=== PATIENT | male | born 2000 | race Two or more races ===

== ENCOUNTER 2024-09-23 13:42 | Emergency (ER) | payer OTHER ==
[~2024-09-23] VITALS: Ht 170.2 cm; Wt 59.0 kg
[2024-09-23 13:46] VITALS: BP 135/70; TEMP 96.9; O2SAT 100
[2024-09-23] MEDS ORDERED: OXYM15SP2 (15:52)
== END 2024-09-23 15:56 | disposition home or self-care (01) ==
LOC: M ED 13:42
DX: S00.33XA Contusion of nose, initial encounter (principal); W01.0XXA Fall on same level from slipping, tripping and stumbling without subsequent striking against object, initial encounter; Y92.9 Unspecified place or not applicable; Y93.02 Activity, running; Y99.1 Military activity; Z79.899 Other long term (current) drug therapy

== ENCOUNTER 2025-08-10 09:10 | Inpatient (IN) | payer OTHER ==
[~2025-08-10] VITALS: Ht 170.2 cm; Wt 54.4 kg
[2025-08-10] MEDS: NICOTINE 14 MG/24 HR TRANSDERMAL TD SCH (09:00)
[~2025-08-10 09:10] MED LIST: OXYM15SP2
[2025-08-10 10:19] LABS: PLATELET COUNT, AUTOMATED 209 10^3/uL (150-450)
[2025-08-10 10:36] LABS: ETHYL ALCOHOL (ETHANOL) 0.004 % (0.000-0.010)
[2025-08-10 10:38] LABS: ALT/SGPT 10 U/L (7.0-40); AST/SGOT 17 U/L (<34); CALCIUM LEVEL 8.8 MG/DL (8.5-10.1); CARBON DIOXIDE LEVEL 29 MMOL/L (20-31); CHLORIDE LEVEL 104 MMOL/L (98-107); CREATININE FOR GFR 0.79 MG/DL (0.70-1.30); GLOMERULAR FILTRATION RATE > 90.0 (>60); POTASSIUM SERUM 4.1 MMOL/L (3.5-5.1); SALICYLATE LEVEL < 3.0 MG/DL (<30); SODIUM LEVEL 142 MMOL/L (136-145)
[2025-08-10] MEDS ORDERED: HOME MED LIST COMPLETE! XX SCH (10:50)
[2025-08-10 12:53] LABS: AMPHETAMINES LEVEL URINE NEGATIVE (NEGATIVE); BARBITURATES URINE NEGATIVE (NEGATIVE); BENZODIAZEPINES URINE NEGATIVE (NEGATIVE); CANNABINOIDS URINE NEGATIVE (NEGATIVE); COCAINE METABOLITE URINE NEGATIVE (NEGATIVE); METHADONE URINE NEGATIVE (NEGATIVE); OPIATES URINE NEGATIVE (NEGATIVE); PHENCYCLIDINE URINE NEGATIVE (NEGATIVE)
[2025-08-10] MEDS ORDERED: traZODone 50 MG TAB PO PRN (13:05)
[2025-08-10] MEDS ORDERED: LORazepam 1 MG TAB PO PRN (13:05)
[2025-08-10] MEDS ORDERED: HALOPERIDOL 5 MG TAB PO PRN (13:05)
[2025-08-10] MEDS ORDERED: OLANZapine 5 MG TAB PO PRN (13:05)
[2025-08-10] MEDS ORDERED: MOM 30 ML SUSPENSION UDC PO PRN (13:05)
[2025-08-10] MEDS ORDERED: ACETAMINOPHEN 325 MG TAB PO PRN (13:05)
[2025-08-10] MEDS ORDERED: IBUPROFEN 400 MG TAB PO PRN (13:05)
[2025-08-10] MEDS ORDERED: MAALOX 30 ML SUSP *UDC PO PRN (13:05)
[2025-08-10 17:00] VITALS: BP 125/67; TEMP 97.9; O2SAT 99
[2025-08-11 06:25] VITALS: BP 123/64; TEMP 97.2; O2SAT 99
[2025-08-11 15:09] VITALS: BP 111/68; TEMP 97.9; O2SAT 100
[2025-08-12 06:30] VITALS: BP 114/65; TEMP 97.3; O2SAT 100
[2025-08-12 17:24] VITALS: BP 110/60; TEMP 99.5; O2SAT 100
[2025-08-12] MEDS: SERTRALINE HCL 50 MG TAB PO SCH (20:17)
[2025-08-13 06:13] VITALS: BP 121/70; TEMP 98.2; O2SAT 99
[2025-08-13 14:35] VITALS: BP 123/59; TEMP 97.8; O2SAT 97
[2025-08-13 20:12] VITALS: BP 123/59; TEMP 97.8; O2SAT 97
[2025-08-14 06:43] VITALS: BP 110/71; TEMP 97.7; O2SAT 98
[2025-08-14 16:06] VITALS: BP 119/73; TEMP 97.3; O2SAT 100
[2025-08-14 20:29] VITALS: BP 119/73; TEMP 97.3; O2SAT 100
[2025-08-15 06:29] VITALS: BP_SYST 111; BP_SYST 135; BP_DIAS 64; BP_DIAS 65; TEMP 97.8; O2SAT 100
[2025-08-15 15:23] VITALS: BP 114/69; TEMP 97.8; O2SAT 98
[2025-08-15 20:34] VITALS: BP 114/69; TEMP 97.8; O2SAT 98
[2025-08-16 06:32] VITALS: BP 111/59; TEMP 98.5; O2SAT 97
[2025-08-16 15:23] VITALS: BP 137/68; TEMP 97.9; O2SAT 99
[2025-08-16 15:24] VITALS: BP_SYST 137; BP_SYST 154; BP_DIAS 68; BP_DIAS 94; TEMP 98.6; O2SAT 99
[2025-08-17 06:20] VITALS: BP 139/67; TEMP 97.7; O2SAT 98
[2025-08-17 18:12] VITALS: BP 112/74; TEMP 97.2
[2025-08-17] MEDS: SERTRALINE HCL 25 MG TABLET PO SCH (20:53)
[2025-08-18 06:23] VITALS: BP 119/60; TEMP 97.9; O2SAT 100
[2025-08-18 15:14] VITALS: BP 115/61; TEMP 97.3; O2SAT 98
[2025-08-18] MEDS: MIRTAZAPINE 15 MG TAB PO SCH (20:04)
[2025-08-19 06:14] VITALS: BP 130/57; TEMP 97.8; O2SAT 97
[2025-08-19 09:57] LABS: ALT/SGPT 13 U/L (7.0-40); AST/SGOT 16 U/L (<34); CALCIUM LEVEL 9.6 MG/DL (8.5-10.1); CARBON DIOXIDE LEVEL 32 MMOL/L (20-31); CHLORIDE LEVEL 103 MMOL/L (98-107); CREATININE FOR GFR 0.90 MG/DL (0.70-1.30); GLOMERULAR FILTRATION RATE > 90.0 (>60); POTASSIUM SERUM 4.3 MMOL/L (3.5-5.1); SODIUM LEVEL 143 MMOL/L (136-145)
[2025-08-19 15:41] VITALS: BP 105/55; TEMP 97.2; O2SAT 99
[2025-08-20 05:52] VITALS: BP 105/66; TEMP 97.6; O2SAT 99
[2025-08-20 15:42] VITALS: BP 122/63; TEMP 97.6; O2SAT 97
[2025-08-21 00:54] VITALS: BP 122/63; TEMP 97.6; O2SAT 97
[2025-08-21 06:05] VITALS: BP 104/69; TEMP 97.1; O2SAT 98
[2025-08-21] MEDS ORDERED: MIRT-10 PO (08:07)
[2025-08-21] MEDS ORDERED: SERT25TA21 PO (08:07)
== END 2025-08-21 11:05 | disposition home or self-care (01) | DRG 881 ==
LOC: M ED 09:10 → M ED INP 13:04 → M PSY 16:42
PROVIDERS: ADMIT Internal Medicine; ATTEND Internal Medicine
DX: F32.A Depression, unspecified (principal); R45.851 Suicidal ideations; F41.1 Generalized anxiety disorder; Z63.9 Problem related to primary support group, unspecified; Z91.51 Personal history of suicidal behavior